=== PATIENT | male | born 1960 | race Hispanic/Latino ===

== ENCOUNTER 2018-05-28 15:18 | Emergency (ER) | payer OTHER ==
[2018-05-28 15:52] LABS: BASOPHILS % (AUTO) 0.4 % (0.0-5.0); EOSINOPHILS % (AUTO) 1.2 % (0.0-8.0); LYMPHOCYTES % (AUTO) 31.7 % (21.0-51.0); MEAN CORPUSCULAR HEMOGLOBIN 32.4 pg (27.0-33.0); MEAN CORPUSCULAR HGB CONC 34.6 g/dL (32.0-36.0); MEAN CORPUSCULAR VOLUME 93.8 fL (79-99); MONOCYTES % (AUTO) 5.9 % (3.0-13.0); NEUTROPHILS % (AUTO) 60.8 % (40.0-77.0); PLATELET COUNT (AUTO) 202 K/uL (130-400); RED BLOOD CELL COUNT(AUTO) 4.69 MIL/uL (4.50-6.20); RED CELL DISTRIBUTION WIDTH 13.4 % (11.0-15.5); WHITE BLOOD COUNT (AUTO) 11.4 K/uL (4.8-10.8)
[2018-05-28 16:02] LABS: CARBON DIOXIDE 28 mmol/L (21-32); CHLORIDE 101 mmol/L (101-111); CREATININE 1.1 mg/dL (0.5-1.5); GLOMERULAR FILTR. RATE CALC 74 mL/min (>60); GLUCOSE,RANDOM 127 mg/dL (70-105); POTASSIUM 3.6 mmol/L (3.5-5.1); SODIUM SERUM 139 mmol/L (136-145); UREA NITROGEN, BLOOD 15 mg/dL (7-18)
[2018-05-28 16:05] LABS: CRP QUANTITATIVE < 2.00 mg/L (0.00-9.0)
[2018-05-28] MEDS ORDERED: METHYLPREDNISOLONE SOD SUCC 125MG/2ML VIAL ONE (16:10)
[2018-05-28 16:54] LABS: ERYTHROCYTE SEDIMENTATION RATE 8 MM/HR (0-20)
== END 2018-05-28 16:18 | disposition home or self-care (01) ==
LOC: EDH 15:18
DX: M10.9 Gout, unspecified (principal); F31.9 Bipolar disorder, unspecified; E11.9 Type 2 diabetes mellitus without complications; I10 Essential (primary) hypertension; Z72.0 Tobacco use
CPT/HCPCS: 36415; 80048; 84550; 85025; 85651; 86140; 96372; 99284; J2930

== ENCOUNTER 2019-04-19 18:40 | Emergency (ER) | payer OTHER ==
[2019-04-19] MEDS ORDERED: LIDOCAINE 5% TOPICAL PATCH TP ONE (18:57)
[2019-04-19] MEDS ORDERED: KETOROLAC TROMETHAMINE 60 MG/2 ML VIAL ONE (18:57)
[2019-04-19] MEDS ORDERED: DIAZEPAM 5 MG TABLET ONE (18:58)
== END 2019-04-19 19:35 | disposition home or self-care (01) ==
LOC: EDH 18:40
DX: M54.5 Low back pain (principal); E11.9 Type 2 diabetes mellitus without complications; I10 Essential (primary) hypertension; F31.9 Bipolar disorder, unspecified; Z90.49 Acquired absence of other specified parts of digestive tract; Z98.890 Other specified postprocedural states; Z72.0 Tobacco use
CPT/HCPCS: 96372; 99283; J1885

== ENCOUNTER 2019-06-20 09:29 | Emergency (ER) | payer MEDICAID ==
[2019-06-20] MEDS ORDERED: KETOROLAC TROMETHAMINE 60 MG/2 ML VIAL ONE (10:26)
== END 2019-06-20 11:05 | disposition home or self-care (01) ==
LOC: EDH 09:29
DX: M10.071 Idiopathic gout, right ankle and foot (principal); F31.9 Bipolar disorder, unspecified; E11.9 Type 2 diabetes mellitus without complications; I10 Essential (primary) hypertension; Z72.0 Tobacco use
CPT/HCPCS: 96372; 99283; J1885

== ENCOUNTER 2019-10-17 06:02 | Day surgery (SDC) | payer MEDICAID ==
[2019-10-16 08:56] LABS: BASOPHILS % (AUTO) 0.8 % (0.0-5.0); EOSINOPHILS % (AUTO) 3.7 % (0.0-8.0); HEMATOCRIT 44.9 % (42-54); LYMPHOCYTES % (AUTO) 41.1 % (21.0-51.0); MEAN CORPUSCULAR HGB CONC 34.3 g/dL (32.0-36.0); MEAN CORPUSCULAR VOLUME 93.3 fL (79-99); MONOCYTES % (AUTO) 6.5 % (3.0-13.0); NEUTROPHILS % (AUTO) 47.6 % (40.0-77.0); PLATELET COUNT (AUTO) 201 K/uL (130-400); RED BLOOD CELL COUNT(AUTO) 4.81 MIL/uL (4.50-6.20); RED CELL DISTRIBUTION WIDTH 13.5 % (11.0-15.5); WHITE BLOOD COUNT (AUTO) 6.5 K/uL (4.8-10.8)
[2019-10-16 10:01] VITALS: BP 154/88
[~2019-10-17] VITALS: Ht 176.5 cm; Wt 88.5 kg
[2019-10-17] VITALS (18 sets, daily range): BP systolic 97–136; BP diastolic 55–77
[2019-10-17] MEDS ORDERED: SODIUM CHLORIDE 0.9% 1000ML 1,000 ML IV ONE (07:22)
[2019-10-17] MEDS ORDERED: LIDOCAINE PF 2% 5ML ABBOJECT ONE (07:29)
[2019-10-17] MEDS: CEFAZOLIN SODIUM 1 GM VIAL IVP SCH ×2 (07:30→07:40)
[2019-10-17] MEDS ORDERED: PROPOFOL 10 MG/ML 20ML VIAL IV ONE (07:30)
[2019-10-17] MEDS ORDERED: FENTANYL CITRATE PF 50 MCG/1 ML 2ML VIAL ONE (07:30)
[2019-10-17] MEDS ORDERED: ROCURONIUM 10MG/1ML SYR 10 MG/ML ML ONE (07:30)
[2019-10-17] MEDS ORDERED: MIDAZOLAM HCL 1 MG/ML 2ML VIAL ONE (07:30)
[2019-10-17] MEDS ORDERED: ONDANSETRON HCL 4 MG/2 ML VIAL ONE (07:33)
[2019-10-17] MEDS ORDERED: DEXAMETHASONE SOD PHOSPHATE 10MG/ML 1ML VIAL ONE (07:33)
[2019-10-17] MEDS ORDERED: ROPIVACAINE 0.5% 5MG/ML 30ML IJ ONE (07:36)
[2019-10-17] MEDS ORDERED: EPHEDRINE SULFATE 50 MG/ML AMPULE ONE (08:01)
[2019-10-17] MEDS ORDERED: NEOSTIGMINE 5MG/5ML SYR IV ONE (08:30)
[2019-10-17] MEDS ORDERED: GLYCOPYRROLATE 1 MG/5 ML SYRINGE ONE (08:30)
[2019-10-17] MEDS ORDERED: ACET1TAB12 PO (09:15)
[2019-10-17] MEDS ORDERED: LISI10TA7 PO (09:15)
[2019-10-17] MEDS ORDERED: ALLO300T2 PO (09:15)
[2019-10-17] MEDS ORDERED: TRAM-355 PO (09:15)
[2019-10-17] MEDS ORDERED: BACL5TAB PO (09:15)
[2019-10-17] MEDS ORDERED: ATOR40TA69 PO (09:15)
[2019-10-17] MEDS ORDERED: METH4TAB15 PO (09:15)
[2019-10-17] MEDS ORDERED: METF-444 PO (09:15)
[2019-10-17] MEDS ORDERED: OMEP40CA13 PO (09:15)
[2019-10-17] MEDS ORDERED: INSU100V37 SQ (09:15)
[2019-10-17] MEDS ORDERED: MEPERIDINE-PF 25 MG/ML SYG ONE (09:26)
[2019-10-17] MEDS ORDERED: KETOROLAC TROMETHAMINE 30MG/ML ONE (09:27)
--- NOTE | 2019-10-17 11:30 | NUR ---
Pt discharged home, tolerating fluids well, ambulating well as tolerated. PT denies any severe pain, nausea or dizziness. Dressing to left knee remains dry, clean and intact, wrapped with lucero-bandage with signs of good peripheral circulation to left feet/toes. Prescription given to pt. PT instructed to leave dressing on keeping it clean, dry, and intact, until seen by Dr. Romero at follow-up appointment, unless it was to get dirty or wet and then they were to change it and apply 4x4s (as specified by Dr. Zavala by telephone). Pt and SO verbalized understanding. Pt and SO report no further questions at this time.
== END 2019-10-17 11:30 | disposition home or self-care (01) ==
LOC: DAH 06:02
PROVIDERS: ATTEND Orthopaedic Surgery
DX: M70.42 Prepatellar bursitis, left knee (principal); K21.9 Gastro-esophageal reflux disease without esophagitis; E11.9 Type 2 diabetes mellitus without complications; I10 Essential (primary) hypertension; E78.5 Hyperlipidemia, unspecified; M10.9 Gout, unspecified; Z79.4 Long term (current) use of insulin
CPT/HCPCS: 27340; 36415; 64447; 76942; 80048; 82948 ×2; 85025; A4213; A4215; A4221; A4222; A4223; A4649; A4663; A4930 ×2; A6223; A6260; A6446; J0690; J1100; J1885; J2001; J2175; J2250; J2405; J2704; J2710; J2795; J3010; J3490 ×2; J7030

== ENCOUNTER 2019-11-01 14:37 | Emergency (ER) | payer MEDICAID ==
[~2019-11-01 14:37] MED LIST: ACET1TAB12 PO; ALLO300T2 PO; ATOR40TA69 PO; BACL5TAB PO; INSU100V37 SQ; LISI10TA7 PO; METF-444 PO; METH4TAB15 PO; OMEP40CA13 PO; TRAM-355 PO
[2019-11-02] MEDS ORDERED: INSU10VI3 SQ (12:12)
[2019-11-02] MEDS ORDERED: NAPR500T6 PO (12:17)
[2019-11-02] MEDS ORDERED: DOCU240C88 PO (12:17)
[2019-11-02] MEDS ORDERED: IBUP-2784 PO (12:17)
== END 2019-11-01 16:01 | disposition home or self-care (01) ==
LOC: EDH 14:37
DX: J02.9 Acute pharyngitis, unspecified (principal); F31.9 Bipolar disorder, unspecified; E11.9 Type 2 diabetes mellitus without complications; I10 Essential (primary) hypertension; Z72.0 Tobacco use
CPT/HCPCS: 87880

== ENCOUNTER 2019-11-02 10:40 | Day surgery (SDC) | payer MEDICAID ==
[2019-11-01 13:43] LABS: POTASSIUM 3.9 mmol/L (3.5-5.1)
[2019-11-01 13:55] VITALS: BP 147/82
--- NOTE | 2019-11-01 14:38 | NUR ---
nursing clarification of orders for surgery for tomorrow, also dr james informed that pt has been c/o sore throat and cough. also pt states he has chest pain off and on and hasnt told primary care physician. states he used to take nitro subl for chest pain but that was many yrs ago and hasnt been followed up by hair or beauty salon manager. dr james wants pt to go to er and be evaluated for sore throat symptoms and cardiac too. i personally took pt to er and spoke to triage tax record clerk and pt will be seen now.
[~2019-11-02] VITALS: Ht 172.7 cm; Wt 87.9 kg
[2019-11-02] VITALS (18 sets, daily range): BP systolic 108–133; BP diastolic 55–76
--- NOTE | 2019-11-02 11:00 | NUR ---
POTENTIAL FOR INFECTION: SHAVED LEFT KNEE / LEFT LEG PER SHAJI MCPHERSON FOLLOWED BY WIPING WITH ANDRÉS: 2% CHLORHEXIDINE GLUCONATE CLOTH PATIENTS PRE-OP SKIN PREP.
[2019-11-02] MEDS ORDERED: SODIUM CHLORIDE 0.9% 1000ML 1,000 ML IV ONE (11:44)
[2019-11-02] MEDS ORDERED: CEFAZOLIN SODIUM 1 GM VIAL ONE (11:44)
[2019-11-02] MEDS: CEFAZOLIN SODIUM 1 GM VIAL IVP SCH ×2 (12:00→12:40)
[2019-11-02] MEDS ORDERED: INSU10VI3 SQ (12:12)
[2019-11-02] MEDS ORDERED: IBUP-2784 PO (12:17)
[2019-11-02] MEDS ORDERED: DOCU240C88 PO (12:17)
[2019-11-02] MEDS ORDERED: NAPR500T6 PO (12:17)
[2019-11-02] MEDS ORDERED: ONDANSETRON HCL 4 MG/2 ML VIAL ONE (12:38)
[2019-11-02] MEDS ORDERED: MIDAZOLAM HCL 1 MG/ML 2ML VIAL ONE (12:38)
[2019-11-02] MEDS ORDERED: PROPOFOL 10 MG/ML 20ML VIAL IV ONE (12:38)
[2019-11-02] MEDS ORDERED: DEXAMETHASONE SOD PHOSPHATE 10MG/ML 1ML VIAL ONE (12:38)
[2019-11-02] MEDS ORDERED: LIDOCAINE PF 2% 5ML ABBOJECT ONE (12:38)
[2019-11-02] MEDS ORDERED: FENTANYL CITRATE PF 50 MCG/1 ML 2ML VIAL ONE (12:39)
[2019-11-02] MEDS ORDERED: ROCURONIUM 10MG/1ML SYR 10 MG/ML ML ONE (12:53)
[2019-11-02] MEDS ORDERED: MEPERIDINE-PF 25 MG/ML SYG ONE ×2 (13:54→14:06)
--- NOTE | 2019-11-02 15:35 | NUR ---
PT LEFT VIA WHEELCHAIR IN PVT CAR, D/C INSTRUCTIONS GIVEN TO SISTER ALONG WITH F/U APPT. V/S ARE STABLE NO COMPLICATION UPON D/C DRESSING DRY AND INTACT.
== END 2019-11-02 15:30 | disposition home or self-care (01) ==
LOC: DAH 10:40
PROVIDERS: ATTEND Orthopaedic Surgery
DX: L76.32 Postprocedural hematoma of skin and subcutaneous tissue following other procedure (principal); Y83.8 Other surgical procedures as the cause of abnormal reaction of the patient, or of later complication, without mention of misadventure at the time of the procedure; F17.210 Nicotine dependence, cigarettes, uncomplicated; M10.9 Gout, unspecified; I10 Essential (primary) hypertension; E78.5 Hyperlipidemia, unspecified; M19.90 Unspecified osteoarthritis, unspecified site; B19.20 Unspecified viral hepatitis C without hepatic coma; E11.9 Type 2 diabetes mellitus without complications; Z79.4 Long term (current) use of insulin; Z79.899 Other long term (current) drug therapy; Z79.84 Long term (current) use of oral hypoglycemic drugs; Z82.49 Family history of ischemic heart disease and other diseases of the circulatory system; Z83.3 Family history of diabetes mellitus
CPT/HCPCS: 27301; 36415; 80048; 82948 ×2; A4213; A4215; A4221; A4222; A4223; A4649; A4663; A4930; A5120; A6223; J0690; J1100; J2001; J2175 ×2; J2250; J2405; J2704; J3010; J7030 ×3

== ENCOUNTER → 2020-05-20 | Outpatient (CLI) | payer MEDICAID ==
[~2020-05-20] MED LIST changes: +DOCU240C88 PO; +INSU10VI3 SQ; +NAPR500T6 PO
== END | disposition home or self-care (01) ==
LOC: SHCH 15:12
PROVIDERS: ATTEND Internal Medicine Cardiovascular Disease
DX: R07.9 Chest pain, unspecified (principal)
CPT/HCPCS: 93306; 93356

== ENCOUNTER → 2020-05-31 | Outpatient (CLI) | payer MEDICAID ==
--- NOTE | 2020-05-24 09:24 | NUR ---
PT IS A NO SHOW FOR THIS DOS
[~2020-05-31] MED LIST changes: +REGADENOSON 0.4 MG/5 ML PF SYG IVP SCH
== END | disposition home or self-care (01) ==
LOC: SHCH 09:05
PROVIDERS: ATTEND Internal Medicine Cardiovascular Disease
DX: R07.9 Chest pain, unspecified (principal); R06.00 Dyspnea, unspecified
CPT/HCPCS: 78452; 93017; 96374; A9500 ×2; J2785

== ENCOUNTER → 2020-07-03 | Outpatient (CLI) | payer MEDICAID ==
[~2020-07-03] MED LIST changes: -REGADENOSON 0.4 MG/5 ML PF SYG IVP SCH
== END | disposition home or self-care (01) ==
LOC: SHCH 15:17
PROVIDERS: ATTEND Internal Medicine Cardiovascular Disease
DX: I70.203 Unspecified atherosclerosis of native arteries of extremities, bilateral legs (principal)
CPT/HCPCS: 93925

== ENCOUNTER 2021-07-18 16:37 | Emergency (ER) | payer MEDICAID ==
[~2021-07-18] VITALS: Ht 175.3 cm; Wt 78.5 kg
[~2021-07-18 16:37] MED LIST changes: -DOCU240C88 PO; +DOCU240C90 PO; +LISI10TA24 PO; -LISI10TA7 PO; -OMEP40CA13 PO; +OMEP40CA21 PO
[2021-07-18 17:26] VITALS: BP 140/87
[2021-07-18] MEDS ORDERED: MAGNESIUM CITRATE 296 ML SOLUTION PO ONE (17:30)
[2021-07-18] MEDS ORDERED: LACTULOSE 20 GM/30 ML UDCUP PO ONE (17:30)
== END 2021-07-18 18:12 | disposition home or self-care (01) ==
LOC: EDH 16:37
DX: K59.00 Constipation, unspecified (principal); E11.9 Type 2 diabetes mellitus without complications; I11.9 Hypertensive heart disease without heart failure; E78.00 Pure hypercholesterolemia, unspecified; Z79.899 Other long term (current) drug therapy
CPT/HCPCS: 74018

== ENCOUNTER 2022-03-01 17:34 | Emergency (ER) | payer MEDICAID ==
[~2022-03-01] VITALS: Ht 175.3 cm; Wt 81.6 kg
[~2022-03-01 17:34] MED LIST changes: +BACI30OI10 TP
[2022-03-01 18:00] LABS: BASOPHILS % (AUTO) 0.8 % (0.0-5.0); EOSINOPHILS % (AUTO) 2.2 % (0.0-8.0); HEMATOCRIT 39.9 % (42-54); LYMPHOCYTES % (AUTO) 32.2 % (21.0-51.0); MEAN CORPUSCULAR HEMOGLOBIN 31.9 pg (27.0-33.0); MEAN CORPUSCULAR HGB CONC 35.3 g/dL (32.0-36.0); MEAN CORPUSCULAR VOLUME 90.3 fL (79-99); NEUTROPHILS % (AUTO) 56.4 % (40.0-77.0); PLATELET COUNT (AUTO) 175 K/uL (130-400); RED BLOOD CELL COUNT(AUTO) 4.42 MIL/uL (4.50-6.20); RED CELL DISTRIBUTION WIDTH 12.4 % (11.0-15.5); WHITE BLOOD COUNT (AUTO) 7.9 K/uL (4.8-10.8)
[2022-03-01 18:23] LABS: ALBUMIN 3.9 g/dL (3.5-5.0); CREATININE 1.4 mg/dL (0.5-1.5); POTASSIUM 3.9 mmol/L (3.5-5.1)
[2022-03-01 20:14] LABS: APPEARANCE,URINE CLEAR (CLEAR); BILIRUBIN,URINE NEGATIVE (NEGATIVE); COLOR,URINE YELLOW (YELLOW); GLUCOSE, URINE (UA) >=1000 mg/dL (NEGATIVE); KETONES,URINE NEGATIVE (NEGATIVE); LEUKOCYTE ESTERASE ,URINE NEGATIVE (NEGATIVE); NITRATE,URINE NEGATIVE (NEGATIVE); OCCULT BLOOD,URINE NEGATIVE (NEGATIVE); PH,URINE 6.5 (5.0-8.0); PROTEIN,URINE NEGATIVE (NEGATIVE); UROBILINOGEN,URINE 0.2 mg/dL (0.2-1.0)
[2022-03-01 20:26] LABS: BACTERIA,URINE None Seen /HPF (None Seen); MUCUS,URINE Few LPF (None Seen); RBC,URINE 0-1 /HPF (0-1); SQUAMOUS EPITHELIAL CELL,UR Rare /HPF (0-2); WBC,URINE 0-1 /HPF (0-1)
[2022-03-01] MEDS ORDERED: INSULIN LISPRO 100 UNIT/ML 3ML SQ ONE ×2 (21:00)
[2022-03-01] MEDS ORDERED: GABA300C PO (21:14)
[2022-03-01 21:20] VITALS: BP 145/86
== END 2022-03-01 21:29 | disposition home or self-care (01) ==
LOC: EDH 17:34
DX: M54.2 Cervicalgia (principal); F41.9 Anxiety disorder, unspecified; E11.9 Type 2 diabetes mellitus without complications; E78.00 Pure hypercholesterolemia, unspecified; I10 Essential (primary) hypertension; Z90.89 Acquired absence of other organs; Z90.49 Acquired absence of other specified parts of digestive tract; Z98.890 Other specified postprocedural states; Z79.899 Other long term (current) drug therapy; Z79.84 Long term (current) use of oral hypoglycemic drugs; Z79.4 Long term (current) use of insulin
CPT/HCPCS: 99285; 84484 ×2; 80053; 83880; 85025; 81001; 36415; 72040; 96372; 93005 ×2; J1815

== ENCOUNTER → 2023-04-07 | Outpatient (CLI) | payer MEDICAID ==
[~2023-04-07] MED LIST changes: +GABA300C PO
== END | disposition home or self-care (01) ==
LOC: RAH 09:44
PROVIDERS: ATTEND Internal Medicine Cardiovascular Disease
DX: M79.604 Pain in right leg (principal); M79.605 Pain in left leg
CPT/HCPCS: 93925

== ENCOUNTER → 2025-03-19 | Outpatient (CLI) | payer MEDICAID ==
[~2025-03-19] MED LIST changes: +IOHEXOL 350 MG/ML 100ML INFUS..BTL IV ONE; +NAPR-1506 PO; -NAPR500T6 PO; -TRAM-355 PO; +TRAM-543 PO
--- NOTE | 2025-03-28 11:34 | CARDIOLOGY ---
RAD REPORT: CORNARY CT ANGIO RADIOLOGY REPORT: CORONARY CT ANGIOGRAPHY DATE: March 19, 2025 QUALITY: Excellent CLINICAL HISTORY AND INDICATION: [ chest pain ] TECHNIQUE: After obtaining a preliminary instructor of sociology image, contrast imaging performed on an [employer] [id number] scanner. A dedicated, limited window, coronary imaging protocol was used, with single breath-hold, retrospective ECG gating, and automated arrhythmia rejection. 100 cc of low osmolar contrast agent: Omnipaque 350 was delivered via a 18-gauge IV catheter in the right antecubital fossa, using a power injector and followed by 60 cc of normal saline bolus as a chaser. Collimated images were reformatted at 0.5 mm intervals, and sent to an offline independent workstation for interpretation, using 3D anatomic reconstructions: Curved multiplanar reconstructions, maximum intensity projections, and multiplanar imaging. No metoprolol was administered prior to scanning due to low baseline heart rate. 0.4 mg SL nitroglycerin was given. CORONARY ARTERY DESCRIPTIONS: The coronary arteries arise in normal position. Left main coronary artery: Normal caliber vessel that bifurcates into the LAD and LCx. There is calcified plaque in the distal left main with 40-50% stenosis. Left anterior descending coronary artery: Normal caliber vessel and gives rise to diagonal and septal branches. There is calcified plaque in the proximal and mid LAD with 40-50% stenosis. Left circumflex coronary artery: Normal caliber, nondominant and gives rise to three OM branches. No stenosis. Right coronary artery: Large, dominant vessel giving rise to the PL and PDA branches. There is calcified plaque in the mid RCA with 50-60% stenosis. CAD-RADs: 3, moderate stenosis. Recommend to send for CT-FFR. Thoracic Aorta: Normal diameter. Naomi Beck MD Cardi[facility] NAOMI BECK MD Mar 28, 2025 11:33
== END | disposition home or self-care (01) ==
LOC: RAH 09:00
PROVIDERS: ATTEND Internal Medicine Cardiovascular Disease
DX: R07.9 Chest pain, unspecified (principal)
CPT/HCPCS: 75574; J3490; Q9967